=== PATIENT | female | born 1995 | race Caucasian/White ===

== ENCOUNTER 2020-04-01 12:03 | Emergency (ER) | payer MEDICAID ==
[~2020-04-01] VITALS: Ht 157.5 cm; Wt 52.0 kg
[2020-04-01] MEDS ORDERED: MAGNESIUM/ALUMINUM HYDROXIDE/SIMETHICONE 30ML UDC PO STA (12:32)
[2020-04-01] MEDS ORDERED: FAMOTIDINE 20MG/2ML VIAL IV STA (12:32)
[2020-04-01] MEDS ORDERED: ONDANSETRON HCL 4MG/2ML INJ IV ONE (12:45)
[2020-04-01] MEDS ORDERED: SODIUM CHLORIDE 0.9% 1,000 ML IV ONE (12:45)
[2020-04-01 14:04] LABS: HEMATOCRIT. 38.3 % (36.0-48.0); HEMOGLOBIN. 12.6 g/dL (12.0-16.0); MEAN CORPUSCULAR HEMOGLOBIN 27.6 pg (28.0-32.0); MEAN CORPUSCULAR VOLUME 83.9 fL (81.0-99.0); MEAN PLATELET VOLUME 8.3 fl (7.4-10.4); PLATELET 322 x1000/uL (130-400); RED BLOOD CELL COUNT 4.56 mill/uL (4.2-5.4); RED CELL DISTRIBUTION WIDTH 15.1 % (11.6-14.6)
[2020-04-01 14:10] LABS: CHLORIDE 109 mEq/L (98-107)
[2020-04-01 14:27] LABS: HCG SCREEN NEGATIVE
[2020-04-01] MEDS ORDERED: SODIUM CHLORIDE 0.9% 1,000 ML IV NR (14:30)
[2020-04-01 14:32] LABS: CLARITY URINE CLOUDY (CLEAR); COLOR URINE YELLOW (YELLOW); KETONES URINE 4+ (NEGATIVE); LEUKOCYTE ESTERASE URINE TRACE (NEGATIVE); NITRITE URINE NEGATIVE (NEGATIVE); OCCULT BLOOD URINE NEGATIVE (NEGATIVE); PH URINE 6.5 (4.5-8.0); PROTEIN URINE 1+ (NEGATIVE); SPECIFIC GRAVITY URINE 1.024 (1.005-1.030); UROBILINOGEN URINE 0.2 E.U./dL (0.2-1.0)
[2020-04-01 14:46] LABS: PLATELET ESTIMATE NORMAL
[2020-04-01 15:31] LABS: *AMPHETAMINES SCREEN URINE NEGATIVE (NEGATIVE); *BARBITURATES SCREEN URINE NEGATIVE (NEGATIVE); *BENZODIAZEPINES SCREEN URINE NEGATIVE (NEGATIVE); *COCAINE SCREEN URINE NEGATIVE (NEGATIVE); METHADONE URINE SCREEN NEGATIVE (NEGATIVE)
[2020-04-01 15:32] LABS: OPIATES URINE SCREEN NEGATIVE (NEGATIVE); PHENCYCLIDINE URINE SCREEN NEGATIVE (NEGATIVE)
[2020-04-01 15:35] LABS: CANNABINOID URINE SCREEN PRESUMTIVE POSITIVE (NEGATIVE)
[2020-04-01 17:27] LABS: CHLORIDE 115 mEq/L (98-107)
[2020-04-01 18:00] VITALS: BP 122/68
[2020-04-01] MEDS ORDERED: ONDA4TAB5 MT (18:23)
== END 2020-04-01 19:11 | disposition home or self-care (01) ==
LOC: ER 12:03
DX: E86.0 Dehydration (principal); E87.2 Acidosis; F10.10 Alcohol abuse, uncomplicated; R11.2 Nausea with vomiting, unspecified; Y90.9 Presence of alcohol in blood, level not specified
CPT/HCPCS: 36415; 80048; 80053; 80305; 81003; 81025; 83605; 83690; 84703; 85025; 93005; 96361; 96374; 96375; 99284; J2405; J3490; J7030

== ENCOUNTER 2023-06-11 00:49 | Emergency (ER) | payer MEDICAID, OTHER ==
[~2023-06-11] VITALS: Ht 157.5 cm; Wt 44.0 kg
[~2023-06-11 00:49] MED LIST: ONDA4TAB5 MT
[2023-06-11 00:56] VITALS: O2SAT 98
[2023-06-11 01:19] LABS: HEMATOCRIT. 35.5 % (36.0-48.0); HEMOGLOBIN. 12.2 g/dL (12.0-16.0); MEAN CORPUSCULAR HEMOGLOBIN 32.2 pg (28.0-32.0); MEAN CORPUSCULAR HGB CONC 34.3 g/dL (31.0-37.0); MEAN CORPUSCULAR VOLUME 94.1 fL (81.0-99.0); MEAN PLATELET VOLUME 7.9 fl (7.4-10.4); PLATELET 251 x1000/uL (130-400); RED BLOOD CELL COUNT 3.77 mill/uL (4.2-5.4); WHITE BLOOD COUNT 16.3 x1000/uL (4.5-11.0)
[2023-06-11 01:20] LABS: DIFFERENTIAL COMMENT 1
[2023-06-11 01:26] LABS: CARBON DIOXIDE 21 mEq/L (21-32); CHLORIDE 106 mEq/L (98-107); SODIUM 137 mEq/L (136-145)
[2023-06-11 01:27] LABS: CALCIUM 9.4 mg/dL (8.7-10.4)
[2023-06-11 01:31] LABS: CREATININE 0.7 mg/dL (0.6-1.0)
[2023-06-11 01:32] LABS: GLUCOSE 142 mg/dL (70-105); UREA NITROGEN BLOOD 10 mg/dL (9-23)
[2023-06-11 01:32] LABS: CLARITY URINE CLEAR (CLEAR); COLOR URINE YELLOW (YELLOW); GLUCOSE URINE TRACE (NEGATIVE); KETONES URINE 4+ (NEGATIVE); LEUKOCYTE ESTERASE URINE NEGATIVE (NEGATIVE); NITRITE URINE NEGATIVE (NEGATIVE); OCCULT BLOOD URINE 1+ (NEGATIVE); PH URINE >=9.0 (4.5-8.0); PROTEIN URINE 1+ (NEGATIVE); SPECIFIC GRAVITY URINE 1.028 (1.005-1.030); UROBILINOGEN URINE 0.2 E.U./dL (0.2-1.0)
[2023-06-11 01:33] LABS: ALANINE AMINOTRANSFERASE 14 IU/L (10-49); ASPARTATE AMINOTRANSFERASE 19 IU/L (<34)
[2023-06-11 01:34] LABS: ALBUMIN 5.3 g/dL (3.2-4.8); PROTEIN TOTAL 8.6 g/dL (6.0-8.3)
[2023-06-11] MEDS: SODIUM CHLORIDE 0.9% 1,000 ML IV ONE (04:32)
[2023-06-11] MEDS: CEFTRIAXONE 1GM/50ML 50 ML IV NR (04:32)
[2023-06-11 05:22] LABS: LACTIC ACID 2.6 mmol/L (0.4-2.0)
[2023-06-11 05:30] LABS: HCG SCREEN NEGATIVE
[2023-06-11] MEDS: ONDANSETRON HCL 4MG/2ML INJ IV ONE (06:00)
[2023-06-11 07:39] LABS: SQUAMOUS EPITHELIAL CELL URINE FEW /lpf (RARE/1+)
[2023-06-11 07:40] LABS: BACTERIA URINE NONE SEEN; RBC URINE 0-2 /hpf (0-2); WBC URINE 0-2 /hpf (0-2)
[2023-06-11] MEDS: IOHEXOL-300 100 ML BOTTLE ONE (08:06)
[2023-06-11 09:29] VITALS: BP 106/59; PULSE 74; RESP 14; TEMP 98.7
[2023-06-11 10:58] LABS: PLATELET ESTIMATE NORMAL
== END 2023-06-11 09:30 | disposition home or self-care (01) ==
LOC: ER 01:42
DX: R10.9 Unspecified abdominal pain (principal); R11.2 Nausea with vomiting, unspecified; F12.10 Cannabis abuse, uncomplicated
CPT/HCPCS: 80053; 81003; 81025; 84703; 83605; 83690; 85025; 36415; 74177; 76856; 96365; 96366; 96375; 99285; Q9967; J0696; J2405; Z7610 ×4

== ENCOUNTER 2023-09-14 16:20 | Emergency (ER) | payer MEDICAID, OTHER ==
[~2023-09-14] VITALS: Ht 157.5 cm; Wt 44.0 kg
[2023-09-14 16:27] VITALS: TEMP 98.3; O2SAT 98
[2023-09-14 17:12] LABS: BASOPHILS % 0.4 % (0.0-2.0); HEMATOCRIT. 37.8 % (36.0-48.0); LYMPHOCYTES % 11.1 % (20.0-50.0); MEAN CORPUSCULAR HEMOGLOBIN 31.9 pg (28.0-32.0); MEAN CORPUSCULAR HGB CONC 34.4 g/dL (31.0-37.0); MEAN CORPUSCULAR VOLUME 92.6 fL (81.0-99.0); MEAN PLATELET VOLUME 8.4 fl (7.4-10.4); MONOCYTES % 8.5 % (2.0-8.0); PLATELET 295 x1000/uL (130-400); RED BLOOD CELL COUNT 4.08 mill/uL (4.2-5.4); WHITE BLOOD COUNT 8.7 x1000/uL (4.5-11.0)
[2023-09-14] MEDS ORDERED: TRAZ-251 MT (17:13)
[2023-09-14 17:23] LABS: CARBON DIOXIDE 22 mEq/L (21-32); CHLORIDE 101 mEq/L (98-107); POTASSIUM 3.1 mEq/L (3.5-5.1); SODIUM 134 mEq/L (136-145)
[2023-09-14 17:24] LABS: CALCIUM 9.7 mg/dL (8.7-10.4)
[2023-09-14 17:25] LABS: CLARITY URINE CLEAR (CLEAR); COLOR URINE YELLOW (YELLOW); GLUCOSE URINE NEGATIVE (NEGATIVE); KETONES URINE 4+ (NEGATIVE); LEUKOCYTE ESTERASE URINE NEGATIVE (NEGATIVE); NITRITE URINE NEGATIVE (NEGATIVE); OCCULT BLOOD URINE TRACE (NEGATIVE); PH URINE 7.5 (4.5-8.0); PROTEIN URINE 3+ (NEGATIVE); SPECIFIC GRAVITY URINE 1.019 (1.005-1.030)
[2023-09-14 17:28] LABS: CREATININE 0.7 mg/dL (0.6-1.0); GLUCOSE 127 mg/dL (70-105)
[2023-09-14 17:29] LABS: UREA NITROGEN BLOOD 6 mg/dL (9-23)
[2023-09-14 17:30] LABS: ALANINE AMINOTRANSFERASE 13 IU/L (10-49); ALBUMIN 5.3 g/dL (3.2-4.8); ASPARTATE AMINOTRANSFERASE 16 IU/L (<34)
[2023-09-14 17:31] LABS: BILIRUBIN DIRECT 0.3 mg/dL (<=3.0); BILIRUBIN TOTAL 0.9 mg/dL (0.1-1.0)
[2023-09-14 17:38] VITALS: BP 110/60; PULSE 70; RESP 15
[2023-09-14 17:42] LABS: BACTERIA URINE 2+
[2023-09-14 17:43] LABS: MUCUS URINE 2+ /lpf (< = 2+); RBC URINE 0-2 /hpf (0-2); SQUAMOUS EPITHELIAL CELL URINE 1+ /lpf (RARE/1+); WBC URINE 0-2 /hpf (0-2)
== END 2023-09-14 17:38 | disposition home or self-care (01) ==
LOC: ER 16:20
DX: F41.1 Generalized anxiety disorder (principal); G47.09 Other insomnia; F12.90 Cannabis use, unspecified, uncomplicated
CPT/HCPCS: 36415; 80048; 80076; 81003; 85025; 99283